=== PATIENT | male | born 1950 | race Caucasian/White ===

== ENCOUNTER 2016-10-15 09:37 | Inpatient (IN) | payer MEDICARE, BC ==
[~2016-10-15 09:37] MED LIST: Aspirin 81 MG Tab.Chew PO ONE; Nitroglycerin 0.4 MG Tab.SL SL PRN; Sodium Chloride 0.9% 10 ML Syringe FLUSH PRN
[2016-10-15] MEDS ORDERED: Ondansetron 4 MG/2 ML SDV IVPUSH ONE ×2 (09:53→10:50)
[2016-10-15 10:05] LABS: CHLORIDE,CL 100 mEq/L (98-106); SODIUM,NA 135 mEq/L (136-145)
[2016-10-15] MEDS: fentaNYL 100 MCG/2 ML SDV IVPUSH PRN ×3 (10:05→20:02)
[2016-10-15] MEDS ORDERED: Iopamidol 755 Mg/ML 100 ML Bottle IVPUSH ONE (11:20)
[2016-10-15] MEDS ORDERED: Promethazine 25 MG/ML SDV IM ONE (12:56)
[2016-10-15] MEDS ORDERED: Promethazine 25 MG/ML SDV IM PRN (14:21)
[2016-10-15] MEDS ORDERED: Magnesium Hydroxide 400 MG/5 ML Susp 30 ML Cup PO PRN (14:21)
[2016-10-15] MEDS ORDERED: Temazepam 15 MG Cap PO PRN (14:21)
[2016-10-15] MEDS ORDERED: Sodium Chloride 0.9% 10 ML Syringe FLUSH PRN (14:21)
--- NOTE | 2016-10-15 14:23 | EDM.PDOC ---
ED HPI GENERAL MEDICAL PROBLEM - General Chief Complaint: General Stated Complaint: CP, abdominal pain Time Seen by Provider: 10/15/16 09:37 Source of Information: Reports: Patient, Family History Limitations: Reports: No limitations - History of Present Illness INITIAL COMMENTS - FREE TEXT/NARRATIVE: Patient presents with EMS for abdominal and chest discomfort. States on Thursday he had pain that was lower chest and upper abdomen, mostly on the right side. That pain has eased but now continues to have pain in the lower abdominal quadrants. He presented to the clinic in [place] this am and was diaphoretic, in pain, bloated and they couldn't detect bowel sounds. He states he did have a BM on Thursday but not much movement since. Has not been eating well. Had one other episode of pain like this several months ago that only lasted about 3 hours. He says this pain has now persisted for 3 days. Patient is nauseated, has had the dry heaves. No vomiting. He denies fever. Does have a cardiac history but has had routine follow ups done yearly that have been good. CABG of 6 vessels was done in 2002. Denies any shortness of breath over the last 3 days. Onset: gradual Duration: Day(s):, Constant Location: Reports: chest, abdomen Quality: Reports: Ache, Dull, Pressure Severity: moderate Improves with: Reports: None Associated Symptoms: Reports: chest pain, diaphoresis, loss of appetite, nausea/ vomiting. Denies: cough, fever/chills, headaches, shortness of breath, weakness Abdominal Pain Score (Numeric/FACES): 1 - Related Data Allergies Allergy/AdvReac Type Severity Reaction Status Date / Time cephalexin Allergy Diarrhea Verified 10/15/16 09:44 chlorthalidone Allergy Other Verified 10/15/16 09:44 acetaminophen [From Tylenol] AdvReac Cannot Verified 10/15/16 09:44 Remember Home Meds: Home Meds Aspirin [Low Dose Aspirin EC] 81 mg PO DAILY 12/12/14 [History] Isosorbide Mononitrate [Isosorbide Mononitrate ER] 30 mg PO DAILY 12/12/14 [ History] Losartan [Cozaar] 100 mg PO DAILY 12/12/14 [History] Metoprolol Succinate [Toprol XL] 200 mg PO DAILY 12/12/14 [History] Simvastatin [Simvastatin] 80 mg PO DAILY 12/12/14 [History] metroNIDAZOLE [Metronidazole] 1 applic TOP DAILY 12/18/15 [History] Cholecalciferol (Vitamin D3) [Vitamin D3] 1,000 units PO DAILY 12/21/15 [History ] Magnesium 250 mg PO DAILY 12/21/15 [History] Centrum Cardio 2,000 unit PO DAILY 10/15/16 [History] Glucosamine/D3/Boswellia Meryl [Osteo Bi-Flex Tablet] 1 tab PO DAILY PRN [History] Testosterone Cypionate [Depo-Testosterone] 200 mg IM Q30D 10/15/16 [History] Past Medical History HEENT History: Reports: Allergic rhinitis, Sinusitis Cardiovascular History: Reports: Bypass, CAD, Heart Failure, High cholesterol, Hypertension, [place], Other (see below) Other Cardiovascular History: left carotid bruit Respiratory History: Reports: Other (see below) Other Respiratory History: SOB with exertion Gastrointestinal History: Reports: Other (see below) Other Gastrointestinal History: umbilical hernia Genitourinary History: Reports: BPH, Other (see below) Other Genitourinary History: nocturia Musculoskeletal History: Reports: Arthritis Endocrine/Metabolic History: Reports: Vitamin D deficiency Oncologic (Cancer) History: Reports: Other (see below) Other Oncologic History: skin - Past Surgical History Cardiovascular Surgical History: Reports: Coronary artery bypass GI Surgical History: Reports: Appendectomy, Hernia, inguinal Male Surgical History: Reports: Vasectomy Social & Family History - Tobacco Use Smoking Status *Q: Never Smoker - Recreational Drug Use Recreational Drug Use: No ED ROS GENERAL - Review of Systems Review Of Systems: See Below Constitutional: Reports: malaise, fatigue, decreased appetite. Denies: fever, chills HEENT: Denies: Ear discharge, Ear pain, Sinus problem, Throat pain, Vertigo, Vision change Respiratory: Denies: shortness of breath, cough Cardiovascular: Reports: Chest pain. Denies: Edema, Lightheadedness Endocrine: Reports: fatigue GI/Abdominal: Reports: Abdominal pain, Distension, Nausea. Denies: Vomiting : Reports: no symptoms Musculoskeletal: Reports: no symptoms Skin: Reports: no symptoms Neurological: Reports: no symptoms ED EXAM, GENERAL - Physical Exam Exam: See Below Exam Limited By: No limitations General Appearance: alert, WD/WN, no apparent distress Ears: normal external exam, normal canal, normal TMs Nose: normal inspection, no blood Throat/Mouth: Normal inspection, Normal oropharynx Head: normocephalic Neck: normal inspection, supple, non-tender Respiratory/Chest: no respiratory distress, normal breath sounds, rhonchi (RLL) Cardiovascular: regular rate, rhythm GI/Abdominal: distended, tender, abnormal bowel sounds: Extremities: normal inspection, normal capillary refill Neurological: alert, oriented Skin Exam: Warm, Dry Course - Vital Signs Last Recorded V/S: Last Vital Signs Temp 100.3 F 10/15/16 16:00 Pulse 92 10/15/16 16:00 Resp 24 H 10/15/16 16:00 BP 148/78 H 10/15/16 16:00 Pulse Ox 94 L 10/15/16 16:00 - Orders/Labs/Meds Orders: Active Orders 24 hr Category Date Time Status Patient Status [ADT] Routine ADT 10/15/16 14:21 Active Cardiac Monitoring [RC] . DIRECTED Care 10/15/16 09:30 Inactive Oxygen Therapy [RC] .PRN Care 10/15/16 14:21 Active Peripheral IV Care [RC] 0800,1999 Care 10/15/16 14:21 Active Up ad Racquel [RC] .PRN Care 10/15/16 14:21 Active Vital Signs [RC] 0000,0400,0800,1200,1600,1999 Care 10/15/16 14:21 Active Regular Diet [DIET] Diet 10/15/16 Dinner Active Abdomen 2V AP Flat Upright [CR] Stat Exams 10/15/16 09:43 Taken Abdomen Ltd [US] Routine Exams 10/16/16 07:00 Ordered Abdomen Pelvis w Cont [CT] Stat Exams 10/15/16 10:42 Taken Ang Chest [CT] Stat Exams 10/15/16 10:42 Taken Chest 2V [CR] Stat Exams 10/15/16 09:31 Taken C-REACTIVE PROTEIN [CHEM] AM Lab 10/16/16 05:11 Ordered CBC WITH AUTO DIFF [HEME] AM Lab 10/16/16 05:11 Ordered COMPREHENSIVE METABOLIC PN,CMP [CHEM] AM Lab 10/16/16 05:11 Ordered Acetaminophen [Tylenol] Med 10/15/16 14:21 Active 650 mg PO Q4H PRN Acetaminophen/HYDROcodone [Chaseley 325-5 MG] Med 10/15/16 14:21 Active 2 tab PO Q4H PRN Aspirin [Halfprin] Med 10/16/16 08:00 Active 81 mg PO DAILY Enoxaparin [Lovenox] Med 10/15/16 20:00 Active 40 mg SUBCUT Q24H Isosorbide Mononitrate [Imdur] Med 10/16/16 08:00 Active 30 mg PO DAILY Lactated Ringers [Ringers, Lactated] 1,000 ml Med 10/15/16 14:21 Active IV ASDIRECTED Levofloxacin/Dextrose 5%-Water [Levaquin in D5W 500 MG/ Med 10/16/16 08:00 Active 100 ML] 500 mg Premix Bag 1 bag IV Q24H Losartan [Cozaar] Med 10/16/16 08:00 Active 100 mg PO DAILY Magnesium Hydroxide [Milk of Magnesia] Med 10/15/16 14:21 Active 30 ml PO Q12H PRN Nitroglycerin [Nitrostat] Med 10/15/16 09:30 Active 0.4 mg SL Q5M PRN Ondansetron [Zofran] Med 10/15/16 10:51 Active 4 mg IVPUSH Q6H PRN Pantoprazole [Protonix IV] Med 10/16/16 08:00 Active 40 mg IVPUSH Q24H Promethazine [Phenergan] Med 10/15/16 14:21 Active 25 mg IM Q6H PRN Sodium Chloride 0.9% [Saline Flush] Med 10/15/16 14:21 Active 10 ml FLUSH ASDIRECTED PRN Temazepam [Restoril] Med 10/15/16 14:21 Active 15 mg PO BEDTIME PRN fentaNYL [Sublimaze] Med 10/15/16 09:44 Active 25 mcg IVPUSH Q6H PRN metroNIDAZOLE [Metronidazole] Med 10/16/16 08:00 Active 1 applic TOP DAILY Peripheral IV Insertion Adult [OM.PC] Routine Oth 10/15/16 14:21 Ordered Resuscitation Status Routine Resus Stat 10/15/16 14:06 Ordered Medication Orders Acetaminophen (Tylenol) 650 mg PO Q4H PRN PRN Reason: Pain (Mild 1-3)/fever Last Admin: 10/15/16 14:59 Dose: 650 mg Acetaminophen/Hydrocodone Bitart (Chaseley 325-5 Mg) 2 tab PO Q4H PRN PRN Reason: Pain (moderate 4-6) Aspirin (Halfprin) 81 mg PO DAILY [facility] Cholecalciferol (Vitamin D3) 1,000 units PO DAILY [facility] Enoxaparin Sodium (Lovenox) 40 mg SUBCUT Q24H [facility] Fentanyl (Sublimaze) 25 mcg IVPUSH Q6H PRN PRN Reason: Pain Last Admin: 10/15/16 15:56 Dose: 25 mcg Admin: 10/15/16 10:05 Dose: 25 mcg Lactated Ringer's (Ringers, Lactated) 1,000 mls @ 75 mls/hr IV ASDIRECTED [facility] Levofloxacin/Dextrose 500 mg/ (Premix) 100 mls @ 100 mls/hr IV Q24H [facility] Isosorbide Mononitrate (Imdur) 30 mg PO DAILY [facility] Losartan Potassium (Cozaar) 100 mg PO DAILY [facility] Magnesium Hydroxide (Milk Of Magnesia) 30 ml PO Q12H PRN PRN Reason: Constipation Magnesium Oxide (Magnesium Oxide) 250 mg PO DAILY [facility] Metoprolol Succinate (Toprol Xl) 200 mg PO DAILY [facility] Nitroglycerin (Nitrostat) 0.4 mg SL Q5M PRN PRN Reason: Chest Pain Stop: 10/16/16 09:31 Ptome [Metronidazole (] 1 Applic)) 1 applic TOP DAILY [facility] Ondansetron HCl (Zofran) 4 mg IVPUSH Q6H PRN PRN Reason: Nausea Last Admin: 10/15/16 14:59 Dose: 4 mg Pantoprazole Sodium (Protonix Iv) 40 mg IVPUSH Q24H [facility] Promethazine HCl (Phenergan) 25 mg IM Q6H PRN PRN Reason: Nausea/Vomiting Simvastatin (Zocor) 80 mg PO BEDTIME [facility] Sodium Chloride (Saline Flush) 10 ml FLUSH ASDIRECTED PRN PRN Reason: Keep Vein Open Temazepam (Restoril) 15 mg PO BEDTIME PRN PRN Reason: Sleep Labs: Laboratory Tests 10/15/16 10/15/16 10/15/16 Range/Units 09:30 09:30 09:30 WBC 17.7 H (5.0-10.0) 10^3/uL RBC 4.87 (4.50-6.00) 10^6/uL Hgb 15.2 (14.0-18.0) g/dL Hct 45.7 (40.0-54.0) % MCV 93.8 (82.0-94.0) fL MCH 31.2 (27.0-32.0) pg MCHC 33.3 (33.0-38.0) g/dL RDW Coeff of Carine 13.2 (11.0-15.0) % Plt Count 360 (150-400) 10^3/uL Neut % (Auto) 79.3 (35-85) % Lymph % (Auto) 6.7 L (10-55) % [place] % (Auto) 13.8 (0-16) % Eos % (Auto) 0.1 (0-5) % Baso % (Auto) 0.1 (0-3) % Neut # 14.00 H (1.80-7.00) 10^3/uL Lymph # 1.19 (1.00-4.80) 10^3/uL [place] # 2.44 H (0.00-0.80) 10^3/uL Eos # 0.01 (0.00-0.45) 10^3/uL Baso # 0.01 10^3/uL PT 11.4 (9.7-12.3) SEC INR 1.07 (0.92-1.18) APTT 31.5 H (24.5-30.9) SEC D-Dimer, Quantitative 1.22 H (0.00-0.50) Sodium 135 L (136-145) mEq/L Potassium 4.1 (3.5-5.0) mEq/L Chloride 100 (98-106) mEq/L Carbon Dioxide 27 (21-32) mmol/L BUN 14 (7-18) mg/dL Creatinine 0.9 (0.7-1.3) mg/dL Est Cr Clr Drug Dosing 88.62 mL/min Estimated GFR (MDRD) > 60 (>=60) mL/min Glucose 124 H D (75-99) mg/dL Calcium 9.1 (8.4-10.1) mg/dL Total Bilirubin 2.1 H (0.0-1.0) mg/dL AST 30 (15-37) U/L ALT 34 (12-78) U/L Alkaline Phosphatase 62 (46-116) U/L Lactate Dehydrogenase 196 H (100-190) U/L Creatine Kinase 684 H (35-232) U/L Troponin I < 0.017 (0.00-0.06) ng/mL C-Reactive Protein 14.7 H (0.2-0.8) mg/dL Total Protein 7.4 (6.4-8.2) g/dL Albumin 3.9 (3.4-5.0) g/dL Amylase 20 L (25-115) U/L Meds: Medications Generic Name Dose Route Start Last Admin Trade Name Freq PRN Reason Stop Dose Admin Acetaminophen 650 mg 10/15/16 14:21 10/15/16 14:59 Tylenol PO 650 mg Q4H PRN Administration Pain (Mild 1-3)/fever Acetaminophen/Hydrocodone Bitart 2 tab 10/15/16 14:21 Chaseley 325-5 Mg PO Q4H PRN Pain (moderate 4-6) Aspirin 81 mg 10/16/16 08:00 Halfprin PO DAILY [facility] Cholecalciferol 1,000 units 10/16/16 08:00 Vitamin D3 PO DAILY [facility] Enoxaparin Sodium 40 mg 10/15/16 20:00 Lovenox SUBCUT Q24H [facility] Fentanyl 25 mcg 10/15/16 09:44 10/15/16 15:56 Sublimaze IVPUSH 25 mcg Q6H PRN Administration Pain Lactated Ringer's 1,000 mls @ 75 mls/hr 10/15/16 14:21 Ringers, Lactated IV ASDIRECTED [facility] Levofloxacin/Dextrose 500 mg/ 100 mls @ 100 mls/hr 10/16/16 08:00 Premix IV Q24H [facility] Isosorbide Mononitrate 30 mg 10/16/16 08:00 Imdur PO DAILY [facility] Losartan Potassium 100 mg 10/16/16 08:00 Cozaar PO DAILY [facility] Magnesium Hydroxide 30 ml 10/15/16 14:21 Milk Of Magnesia PO Q12H PRN Constipation Magnesium Oxide 250 mg 10/16/16 08:00 Magnesium Oxide PO DAILY [facility] Metoprolol Succinate 200 mg 10/16/16 08:00 Toprol Xl PO DAILY [facility] Nitroglycerin 0.4 mg 10/15/16 09:30 Nitrostat SL 10/16/16 09:31 Q5M PRN Chest Pain Ptome [Metronidazole 1 applic 10/16/16 08:00 ] 1 Applic) TOP DAILY [facility] Ondansetron HCl 4 mg 10/15/16 10:51 10/15/16 14:59 Zofran IVPUSH 4 mg Q6H PRN Administration Nausea Pantoprazole Sodium 40 mg 10/16/16 08:00 Protonix Iv IVPUSH Q24H [facility] Promethazine HCl 25 mg 10/15/16 14:21 Phenergan IM Q6H PRN Nausea/Vomiting Simvastatin 80 mg 10/15/16 20:00 Zocor PO BEDTIME [facility] Sodium Chloride 10 ml 10/15/16 14:21 Saline Flush FLUSH ASDIRECTED PRN Keep Vein Open Temazepam 15 mg 10/15/16 14:21 Restoril PO BEDTIME PRN Sleep Discontinued Medications Generic Name Dose Route Start Last Admin Trade Name Freq PRN Reason Stop Dose Admin Aspirin 324 mg 10/15/16 09:30 10/15/16 09:59 Aspirin PO 10/15/16 09:31 324 mg ONETIME ONE Administration Levofloxacin/Dextrose 500 mg/ 100 mls @ 100 mls/hr 10/15/16 14:30 10/15/16 14 :58 Premix IV 10/15/16 15:29 100 mls/hr ONETIME ONE Administration Iopamidol 100 ml 10/15/16 11:20 10/15/16 12:48 [id number] (76%) IVPUSH 10/15/16 11:21 100 ml ONETIME ONE Administration Non-Formulary Medication 1,000 units 10/16/16 08:00 Cholecalciferol (Vitamin D3) [Vitamin D3] PO DAILY [facility] Non-Formulary Medication 250 mg 10/16/16 08:00 Magnesium [Magnesium] PO DAILY [facility] Non-Formulary Medication 200 mg 10/16/16 08:00 Metoprolol Succinate [Toprol Xl] PO DAILY [facility] Non-Formulary Medication 80 mg 10/16/16 08:00 Simvastatin [Simvastatin] PO DAILY [facility] Ondansetron HCl 4 mg 10/15/16 09:53 10/15/16 10:00 Zofran IVPUSH 10/15/16 09:54 4 mg ONETIME ONE Administration Ondansetron HCl 4 mg 10/15/16 10:50 10/15/16 10:54 Zofran IVPUSH 10/15/16 10:51 4 mg ONETIME ONE Administration Pantoprazole Sodium 40 mg 10/15/16 14:30 10/15/16 14:59 Protonix Iv IV 10/15/16 14:31 40 mg ONETIME ONE Administration Promethazine HCl 25 mg 10/15/16 12:56 10/15/16 13:05 Phenergan IM 10/15/16 12:57 25 mg ONETIME ONE Administration Sodium Chloride 10 ml 10/15/16 09:30 Saline Flush FLUSH ASDIRECTED PRN Keep Vein Open - Re-Assessments/Exams Free Text/Narrative Re-Assessment/Exam: 10/15/16 1030 Labs and xray reviewed with patient and . Does have elevation of WBC and CRP as well as D-Dimer. Will proceed with CT scan of chest to rule out PE, CT scan of abdomen and pelvis to look for possible source of infection. Departure - Departure Time of Disposition: 14:05 Disposition: Admitted As Inpatient 66 Condition: fair Clinical Impression: Cholecystitis with cholelithiasis Qualifiers: Cholecystitis acuity: acute - Problem List & Annotations (1) RLL pneumonia SNOMED Code(s): 025356557 Code(s): J18.1 - LOBAR PNEUMONIA, UNSPECIFIED ORGANISM Status: Acute Priority: High Current Visit: Yes Qualifiers: Pneumonia type: due to unspecified organism Qualified Code(s): J18.1 - Lobar pneumonia, unspecified organism (2) Cholecystitis with cholelithiasis SNOMED Code(s): 781694761, 136563812 Code(s): K80.10 - CALCULUS OF GALLBLADDER W CHRONIC CHOLECYST W/O OBSTRUCTION Status: Acute Priority: High Current Visit: Yes Qualifiers: Cholecystitis acuity: acute - Problem List Review Problem List Initiated/Reviewed/Updated: Yes - My Orders Last 24 Hours: My Active Orders 10/15/16 09:30 Cardiac Monitoring [RC] . DIRECTED Nitroglycerin [Nitrostat] 0.4 mg SL Q5M PRN 10/15/16 09:31 Chest 2V [CR] Stat 10/15/16 09:43 Abdomen 2V AP Flat Upright [CR] Stat 10/15/16 09:44 fentaNYL [Sublimaze] 25 mcg IVPUSH Q6H PRN 10/15/16 10:42 Abdomen Pelvis w Cont [CT] Stat Ang Chest [CT] Stat 10/15/16 10:51 Ondansetron [Zofran] 4 mg IVPUSH Q6H PRN 10/15/16 14:06 Resuscitation Status Routine 10/15/16 14:21 Patient Status [ADT] Routine Oxygen Therapy [RC] .PRN Peripheral IV Care [RC] 0800,2000 Up ad Racquel [RC] .PRN Vital Signs [RC] 0000,0400,0800,1200,1600,2000 Acetaminophen [Tylenol] 650 mg PO Q4H PRN Acetaminophen/HYDROcodone [Chaseley 325-5 MG] 2 tab PO Q4H PRN Lactated Ringers [Ringers, Lactated] 1,000 ml IV ASDIRECTED Magnesium Hydroxide [Milk of Magnesia] 30 ml PO Q12H PRN Promethazine [Phenergan] 25 mg IM Q6H PRN Sodium Chloride 0.9% [Saline Flush] 10 ml FLUSH ASDIRECTED PRN Temazepam [Restoril] 15 mg PO BEDTIME PRN Peripheral IV Insertion Adult [OM.PC] Routine 10/15/16 20:00 Enoxaparin [Lovenox] 40 mg SUBCUT Q24H 10/15/16 Dinner Regular Diet [DIET] 10/16/16 05:11 C-REACTIVE PROTEIN [CHEM] AM CBC WITH AUTO DIFF [HEME] AM COMPREHENSIVE METABOLIC PN,CMP [CHEM] AM 10/16/16 07:00 Abdomen Ltd [US] Routine 10/16/16 08:00 Aspirin [Halfprin] 81 mg PO DAILY Isosorbide Mononitrate [Imdur] 30 mg PO DAILY Levofloxacin/Dextrose 5%-Water [Levaquin in D5W 500 MG/100 ML] 500 mg Premix Bag 1 bag IV Q24H Losartan [Cozaar] 100 mg PO DAILY Pantoprazole [Protonix IV] 40 mg IVPUSH Q24H metroNIDAZOLE [Metronidazole] 1 applic TOP DAILY - Assessment/Plan Admission H&P: Please use this note as an admission H&P Last 24 Hours: My Active Orders 10/15/16 09:30 Cardiac Monitoring [RC] . DIRECTED Nitroglycerin [Nitrostat] 0.4 mg SL Q5M PRN 10/15/16 09:31 Chest 2V [CR] Stat 10/15/16 09:43 Abdomen 2V AP Flat Upright [CR] Stat 10/15/16 09:44 fentaNYL [Sublimaze] 25 mcg IVPUSH Q6H PRN 10/15/16 10:42 Abdomen Pelvis w Cont [CT] Stat Ang Chest [CT] Stat 10/15/16 10:51 Ondansetron [Zofran] 4 mg IVPUSH Q6H PRN 10/15/16 14:06 Resuscitation Status Routine 10/15/16 14:21 Patient Status [ADT] Routine Oxygen Therapy [RC] .PRN Peripheral IV Care [RC] 0800,1999 Up ad Racquel [RC] .PRN Vital Signs [RC] 0000,0400,0800,1200,1600,2000 Acetaminophen [Tylenol] 650 mg PO Q4H PRN Acetaminophen/HYDROcodone [Chaseley 325-5 MG] 2 tab PO Q4H PRN Lactated Ringers [Ringers, Lactated] 1,000 ml IV ASDIRECTED Magnesium Hydroxide [Milk of Magnesia] 30 ml PO Q12H PRN Promethazine [Phenergan] 25 mg IM Q6H PRN Sodium Chloride 0.9% [Saline Flush] 10 ml FLUSH ASDIRECTED PRN Temazepam [Restoril] 15 mg PO BEDTIME PRN Peripheral IV Insertion Adult [OM.PC] Routine 10/15/16 20:00 Enoxaparin [Lovenox] 40 mg SUBCUT Q24H 10/15/16 Dinner Regular Diet [DIET] 10/16/16 05:11 C-REACTIVE PROTEIN [CHEM] AM CBC WITH AUTO DIFF [HEME] AM COMPREHENSIVE METABOLIC PN,CMP [CHEM] AM 10/16/16 07:00 Abdomen Ltd [US] Routine 10/16/16 08:00 Aspirin [Halfprin] 81 mg PO DAILY Isos[facility] Mononitrate [Imdur] 30 mg PO DAILY Levofloxacin/Dextrose 5%-Water [Levaquin in D5W 500 MG/100 ML] 500 mg Premix Bag 1 bag IV Q24H Losartan [Cozaar] 100 mg PO DAILY Pantoprazole [Protonix IV] 40 mg IVPUSH Q24H metroNIDAZOLE [Metronidazole] 1 applic TOP DAILY Assessment:: Cholecystitis with cholelithiasis Questionable RLL- CT scan shows subsegmental changes, question infiltrate versus atelectasis. Plan: Admit acute to Dr. Call. Will start IV Levaquin today. Obtain gallbladder ultrasound in am for better definitive test. Repeat labs in am. Dr. Call informed of admission.
[2016-10-15] MEDS ORDERED: Levofloxacin/Dextrose 5%-Water 500 MG in Premix Bag 1 BAG IV ONE (14:30)
[2016-10-15] MEDS ORDERED: Pantoprazole 40 MG Vial IV ONE (14:30)
[2016-10-15] MEDS: Acetaminophen 325 MG Tab PO PRN (14:59)
[2016-10-15] MEDS: Lactated Ringers 1,000 ML IV SCH (14:59)
[2016-10-15] MEDS: Ondansetron 4 MG/2 ML SDV IVPUSH PRN ×2 (14:59→21:42)
[2016-10-15] MEDS: Acetaminophen/HYDROcodone 325-5 MG Tab PO PRN ×2 (17:28→21:41)
[2016-10-15] MEDS ORDERED: Isosorbide Mononitrate 30 MG Tab.ER PO SCH (19:30)
[2016-10-15] MEDS ORDERED: Losartan 100 MG Tab PO SCH (19:31)
[2016-10-15] MEDS ORDERED: Metoprolol Succinate 100 MG Tab.ER PO SCH (19:32)
[2016-10-15] MEDS: Aspirin 81 MG Tab.EC PO SCH (19:59)
[2016-10-15] MEDS ORDERED: Enoxaparin 40 MG/0.4 ML Syringe SUBCUT SCH (20:00)
[2016-10-15] MEDS ORDERED: Simvastatin 40 MG Tab PO SCH (20:00)
[2016-10-16] MEDS: Acetaminophen/HYDROcodone 325-5 MG Tab PO PRN (02:44)
[2016-10-16] MEDS: Lactated Ringers 1,000 ML IV SCH (04:59)
[2016-10-16] MEDS ORDERED: METOPROLOL SUCCINATE 200 MG PO SCH (08:00)
[2016-10-16] MEDS ORDERED: Isosorbide Mononitrate 30 MG Tab.ER PO SCH ×2 (08:00→20:00)
[2016-10-16] MEDS ORDERED: Non-Formulary Medication 1 Each (Magnesium [Magnesium] 250 MG) PO SCH (08:00)
[2016-10-16] MEDS ORDERED: Non-Formulary Medication 1 Each (Cholecalciferol (Vitamin D3) [Vitamin D3] 1,000 UNITS) PO SCH (08:00)
[2016-10-16] MEDS ORDERED: Non-Formulary Medication 1 Each (Simvastatin [Simvastatin] 80 MG) PO SCH (08:00)
[2016-10-16] MEDS ORDERED: Levofloxacin/Dextrose 5%-Water 500 MG in Premix Bag 1 BAG IV SCH (08:00)
[2016-10-16] MEDS ORDERED: Aspirin 81 MG Tab.EC PO SCH (08:00)
[2016-10-16] MEDS ORDERED: Metoprolol Succinate 100 MG Tab.ER PO SCH ×2 (08:00→20:00)
[2016-10-16] MEDS ORDERED: Pantoprazole 40 MG Vial IVPUSH SCH (08:00)
[2016-10-16] MEDS ORDERED: Cholecalciferol (Vitamin D3) 1,000 Unit Tab PO SCH ×2 (08:00→20:00)
[2016-10-16] MEDS ORDERED: METRONIDAZOLE TOP SCH ×2 (08:00→20:00)
[2016-10-16] MEDS ORDERED: Losartan 100 MG Tab PO SCH ×2 (08:00→20:00)
[2016-10-16 08:14] VITALS: BP 147/85
[2016-10-16 08:33] LABS: CHLORIDE,CL 100 mEq/L (98-106); SODIUM,NA 133 mEq/L (136-145)
[2016-10-16] MEDS: Acetaminophen 325 MG Tab PO PRN (08:47)
[2016-10-16] MEDS: Aspirin 81 MG Tab.EC PO SCH (09:03)
[2016-10-16] MEDS: fentaNYL 100 MCG/2 ML SDV IVPUSH PRN (10:00)
[2016-10-16] MEDS: Ondansetron 4 MG/2 ML SDV IVPUSH PRN (10:01)
--- NOTE | 2016-10-20 07:21 | DISCH ---
HISTORY: Dinh presented to the emergency room on 10/15 for complaints of chest pain and upper abdominal pain. He had been experiencing this chest pain for approximately 3 days. Over the course of those days, the pain did settle down into his lower abdomen, had been feeling more distended, having a lot more discomfort, having continuous nausea. He did note that he had a bowel movement last on Thursday, which was normal, has not had one since that time and wondered if that somewhat contributed to it. He has never experienced pain this severe before in his abdomen. He does relate back about 3-4 months ago, he had an episode that lasted about 3 hours, but ultimately that resolved on its own. Denies any real experience with heartburn over the past year or two. Initial presentation to the ER, the patient was diaphoretic. His blood pressure was elevated. His initial lab work at that time showed a white blood count of 17.7, a CRP of 14.7, D-dimer was elevated at 1.22. Ultimately, a CT scan was done to rule out a PE, that did note a possible right subsegmental infiltrate versus atelectasis. Abdominal CT did show thickening of the gallbladder with a couple of stones. We did admit him for hydration to control pain and nausea as well as for further workup. PAST MEDICAL HISTORY: As noted. He does have a history of coronary artery disease, had heart surgery approximately 13 years, initially felt that his presentation was related to his heart but now that the abdominal pain has settled more into his lower quadrants, there is a question of the fact that he could have diverticulitis. He had a colonoscopy in the past that did note he had some issues with diverticulosis. CURRENT MEDICATIONS: Reviewed. Please see med record. HOSPITAL COURSE: The patient continued to have issues with nausea over the last 24 hours, was controlled with both Zofran and Phenergan, had been taking a fairly adequate amount of pain medications to control his upper quadrant pain. We did proceed with a gallbladder ultrasound this a.m., which did show sludge and it looked to be possibly infected. He had been given IV Levaquin over the hospital stay. Dr. Call did contact Dr. Friedman at [facility], who agreed to accept Dinh for surgical consult, possible cholecystectomy. Vital signs throughout his stay did show a low-grade temp from 99.3 to 100.1. Blood pressure did remain stable after admission from 129/72 to 147/85. Oxygen saturation 92% on room air. ASSESSMENT: Cholecystitis with cholelithiasis. PLAN: The patient was transferred to [facility] per [facility] services for surgical consult, and possible cholecystectomy. Please see copy of H and P for further dictation. SOPHIE/PAUL /[id number]
== END 2016-10-16 10:41 | DRG 444 ==
LOC: CC.ED 09:37 → CC.MS 14:07 → UNDOADMIN 14:07 → CC.MS 14:21
PROVIDERS: ADMIT Physician Assistant Medical; ATTEND General Practice
DX: K80.10 Calculus of gallbladder with chronic cholecystitis without obstruction (principal); R07.9 Chest pain, unspecified; R10.10 Upper abdominal pain, unspecified; R11.0 Nausea; J18.1 Lobar pneumonia, unspecified organism; E78.00 Pure hypercholesterolemia, unspecified; N40.0 Benign prostatic hyperplasia without lower urinary tract symptoms; I25.10 Atherosclerotic heart disease of native coronary artery without angina pectoris; Z95.1 Presence of aortocoronary bypass graft; I25.2 Old myocardial infarction; Z85.828 Personal history of other malignant neoplasm of skin; Z88.6 Allergy status to analgesic agent; Z88.1 Allergy status to other antibiotic agents; Z79.82 Long term (current) use of aspirin; R79.1 Abnormal coagulation profile
CPT/HCPCS: 36415; 71020; 71275; 74020; 74177; 80053; 82150; 82550; 83615; 84484; 85025; 85379; 85610; 85730; 86140; 93005; 96372; 96374; 96375; 96376; 99285; A9270; J2405 ×2; J2550; J3010; Q9967 ×2; 76705; 93010; C9113; J1650; J1956; J7120

== ENCOUNTER → 2021-01-25 | Day surgery (SDC) | payer MEDICARE ==
[~2021-01-25] MED LIST changes: -Aspirin 81 MG Tab.Chew PO ONE; +Ketamine 200 MG/20 ML MDV ONE; -Nitroglycerin 0.4 MG Tab.SL SL PRN; +Propofol 200 MG/20 ML SDV ONE; -Sodium Chloride 0.9% 10 ML Syringe FLUSH PRN; +fentaNYL 100 MCG/2 ML SDV ONE
[2021-01-25] MEDS: Lactated Ringers 1,000 ML IV SCH (06:50)
[2021-01-25 08:33] VITALS: BP 113/69; PULSE 55
--- NOTE | 2021-01-25 12:40 | OR ---
DATE OF OPERATION: 01/25/2021 PREOPERATIVE DIAGNOSIS: HISTORY OF POLYPS. POSTOPERATIVE DIAGNOSIS: HISTORY OF POLYPS. SURGEON: Bang Mayers MD PROCEDURE: FULL-LENGTH DIAGNOSTIC COLONOSCOPY. ANESTHESIA: MAC. COMPLICATIONS: None. SPECIMEN: None. FINDINGS: 1. Normal full-length colonoscopy. 2. Sigmoid diverticulosis, mild. RECOMMENDATIONS: Followup colonoscopy in 10 years. INDICATIONS: The patient has a prior history of polyps being removed. He is due for a 5-year followup scope. DESCRIPTION OF PROCEDURE: The patient was prepped and draped, placed in the left lateral decubitus position. A lubricated Olympus colonoscope was inserted and easily advanced to the cecum. Direct visualization of the ileocecal valve and appendiceal orifice was accomplished. Bowel prep unfortunately was marginal. Lot of stool throughout most of the colon. I tried to suction and irrigate where I could, but certainly smaller lesions could be missed. Upon withdrawal, throughout the entire colon, I could find no polyps, masses, ulceration, or bleeding sites. No vascular abnormalities or signs of colitis. The patient does have scattered diverticula throughout the sigmoid area, mild in severity. No other lesions seen. The rectal vault appeared benign. Retroflexion showed no perianal lesions. Air was suctioned. Scope removed without complication. INA/PAUL /[id number]
== END ==
LOC: CC.SDS 06:38
PROVIDERS: ATTEND Family Medicine
DX: Z12.11 Encounter for screening for malignant neoplasm of colon (principal); Z86.010 Personal history of colon polyps; K57.30 Diverticulosis of large intestine without perforation or abscess without bleeding; I11.0 Hypertensive heart disease with heart failure; I25.10 Atherosclerotic heart disease of native coronary artery without angina pectoris; E78.5 Hyperlipidemia, unspecified; E11.9 Type 2 diabetes mellitus without complications; E55.9 Vitamin D deficiency, unspecified; N40.1 Benign prostatic hyperplasia with lower urinary tract symptoms; R35.1 Nocturia; Z88.8 Allergy status to other drugs, medicaments and biological substances; Z79.84 Long term (current) use of oral hypoglycemic drugs; Z79.899 Other long term (current) drug therapy; Z79.82 Long term (current) use of aspirin; Z98.890 Other specified postprocedural states
CPT/HCPCS: 00811; 99100; G0105; J2704; J3010; J7120

== ENCOUNTER 2023-10-29 07:45 | Day surgery (SDC) | payer MEDICARE ==
[2023-10-29] MEDS: Lactated Ringers 1,000 ML IV SCH (08:05)
[2023-10-29] MEDS: Cyclopentolat/Tropic/Phenyleph 1 ML Ophth Drop SDV EYERT SCH (08:06)
[2023-10-29] MEDS ORDERED: Midazolam 1 MG/ML 2 ML SDV ONE (08:36)
[2023-10-29] MEDS: MOXIFLOXACIN PF in BSS 1 MG/ML VIAL ICORN ONE (08:54)
[2023-10-29] MEDS: Tetracaine HCl/PF 0.5% 4 ML Bottle EYERT ONE (08:54)
[2023-10-29] MEDS: Brimonidine 0.2% Ophth Soln 5 ML Bottle EYERT ONE (08:54)
[2023-10-29] MEDS: Povidone-Iodine 5% Sterile Ophth Soln 30 ML Bottle EYERT ONE (08:54)
[2023-10-29] MEDS: Lidocaine 1% 5 ML VIAL INJECT ONE (08:54)
[2023-10-29] MEDS: acetaZOLAMIDE 500 MG Cap.ER PO ONE (09:22)
[2023-10-29 09:56] VITALS: BP 123/66; PULSE 71
== END 2023-10-29 10:08 | disposition home or self-care (01) ==
LOC: CC.SDS 07:45
PROVIDERS: ATTEND Ophthalmology
DX: E11.36 Type 2 diabetes mellitus with diabetic cataract (principal); H21.81 Floppy iris syndrome; I10 Essential (primary) hypertension; I25.10 Atherosclerotic heart disease of native coronary artery without angina pectoris; N40.1 Benign prostatic hyperplasia with lower urinary tract symptoms; E78.5 Hyperlipidemia, unspecified; G47.33 Obstructive sleep apnea (adult) (pediatric); J98.4 Other disorders of lung; E66.01 Morbid (severe) obesity due to excess calories; Z68.38 Body mass index [BMI] 38.0-38.9, adult; Z79.82 Long term (current) use of aspirin; Z79.85 Long-term (current) use of injectable non-insulin antidiabetic drugs; Z79.84 Long term (current) use of oral hypoglycemic drugs; Z79.899 Other long term (current) drug therapy
CPT/HCPCS: A9270-GY; J2250; J3490; J7120

== ENCOUNTER 2023-11-26 08:27 | Day surgery (SDC) | payer MEDICARE ==
[2023-11-26] MEDS: Cyclopentolat/Tropic/Phenyleph 1 ML Ophth Drop SDV EYELF SCH (08:41)
[2023-11-26] MEDS: Lactated Ringers 1,000 ML IV SCH (08:43)
[2023-11-26] MEDS ORDERED: Midazolam 1 MG/ML 2 ML SDV ONE (09:05)
[2023-11-26] MEDS ORDERED: fentaNYL 50 MCG/ML SDV ONE (09:05)
[2023-11-26] MEDS: Phenyleprhine/Ketorolac 4 ML Vial OP ONE (09:18)
[2023-11-26] MEDS: Brimonidine 0.2% Ophth Soln 5 ML Bottle EYEBOTH ONE (09:18)
[2023-11-26] MEDS: Povidone-Iodine 5% Sterile Ophth Soln 30 ML Bottle EYELF ONE (09:18)
[2023-11-26] MEDS: Lidocaine 1% 5 ML VIAL INJECT ONE (09:18)
[2023-11-26] MEDS: Tetracaine HCl/PF 0.5% 4 ML Bottle EYELF ONE (09:18)
[2023-11-26] MEDS: MOXIFLOXACIN PF in BSS 1 MG/ML VIAL ICORN ONE (09:18)
[2023-11-26] MEDS: acetaZOLAMIDE 500 MG Cap.ER PO ONE (10:01)
[2023-11-26 12:36] VITALS: BP 101/46; PULSE 66
== END 2023-11-26 10:35 | disposition home or self-care (01) ==
LOC: CC.SDS 08:27
PROVIDERS: ATTEND Ophthalmology
DX: E11.36 Type 2 diabetes mellitus with diabetic cataract (principal); H57.03 Miosis; I10 Essential (primary) hypertension; E11.9 Type 2 diabetes mellitus without complications; I25.10 Atherosclerotic heart disease of native coronary artery without angina pectoris; E78.5 Hyperlipidemia, unspecified; G47.33 Obstructive sleep apnea (adult) (pediatric); E66.01 Morbid (severe) obesity due to excess calories; Z68.38 Body mass index [BMI] 38.0-38.9, adult; Z95.1 Presence of aortocoronary bypass graft; Z79.82 Long term (current) use of aspirin; Z79.84 Long term (current) use of oral hypoglycemic drugs; Z79.85 Long-term (current) use of injectable non-insulin antidiabetic drugs; Z79.899 Other long term (current) drug therapy
CPT/HCPCS: 00142; 99100; A9270-GY; J1097; J2250; J3010; J3490; J7120

== ENCOUNTER 2024-07-04 14:53 | Inpatient (IN) | payer MEDICARE ==
[2024-07-04] MEDS ORDERED: Sodium Chloride 0.9% 10 ML Syringe FLUSH PRN (15:20)
[2024-07-04] MEDS ORDERED: Acetaminophen 325 MG Tab PO PRN (15:20)
[2024-07-04] MEDS ORDERED: Ondansetron 4 MG/2 ML SDV IV PRN (15:20)
[2024-07-04] MEDS ORDERED: Ondansetron 4 MG Tab.DIS PO PRN (15:20)
[2024-07-04 15:54] LABS: LACTIC ACID 1.8 mmol/L (0.4-2.0)
[2024-07-04] MEDS: Acetaminophen/HYDROcodone 325-5 MG Tab PO PRN (16:21)
[2024-07-04] MEDS: cefTRIAXone 2 GM Vial IVPUSH SCH (16:23)
[2024-07-04] MEDS ORDERED: Albuterol 6.7 GM Inhaler INH PRN (16:26)
[2024-07-04] MEDS: amLODIPine 2.5 MG Tab PO SCH (19:40)
[2024-07-04] MEDS: Losartan 100 MG Tab PO SCH (19:41)
[2024-07-04] MEDS: Magnesium Oxide 400 MG Tab PO SCH (19:41)
[2024-07-04] MEDS: Aspirin 81 MG Tab.EC PO SCH (19:41)
[2024-07-04] MEDS: Metoprolol Succinate 100 MG Tab.ER PO SCH (19:41)
[2024-07-04] MEDS: Simvastatin 40 MG Tab PO SCH (19:41)
[2024-07-04] MEDS: Isosorbide Mononitrate 60 MG Tab.ER PO SCH (19:41)
[2024-07-04] MEDS: Enoxaparin 40 MG/0.4 ML Syringe SUBCUT SCH (19:42)
[2024-07-04] MEDS: Cyclobenzaprine 10 MG Tab PO PRN (19:54)
[2024-07-05] MEDS: Furosemide 40 MG Tab PO SCH (07:21)
[2024-07-05] MEDS: Hydrochlorothiazide 25 MG Tab PO SCH (07:21)
[2024-07-05 07:58] LABS: BASOPHILS ABSOLUTE AUTO 0.01 10^3/uL (0.00-0.50); BASOPHILS PERCENT AUTO 0.1 % (0-1); EOSINOPHILS ABSOLUTE AUTO 0.07 10^3/uL (0.00-1.50); EOSINOPHILS PERCENT AUTO 0.5 % (0-6); HEMATOCRIT 38.6 % (42.0-52.0); HEMOGLOBIN 12.8 g/dL (14.0-18.0); IMMATURE GRAN ABSOLUTE AUTO 0.12 10^3/uL (0.00-0.49); IMMATURE GRAN PERCENT AUTO 0.9 % (0.0-4.9); LYMPHOCYTES ABSOLUTE AUTO 1.55 10^3/uL (0.60-5.00); LYMPHOCYTES PERCENT AUTO 11.8 % (24-44); MEAN CORPUSCULAR HEMOGLOBIN 31.3 pg (27.0-32.0); MEAN CORPUSCULAR HGB CONC 33.2 g/dL (32.0-36.0); MEAN CORPUSCULAR VOLUME 94.4 fL (83.0-97.0); MONOCYTES ABSOLUTE AUTO 1.31 10^3/uL (0.00-1.50); NEUTROPHILS ABSOLUTE AUTO 10.05 x10^3/uL (1.80-8.00); NEUTROPHILS PERCENT AUTO 76.7 % (41-71); PLATELET COUNT,PLT 188 10^3/uL (150-400); RED BLOOD CELL COUNT 4.09 x10^6/uL (4.50-6.00); WHITE BLOOD CELL COUNT,WBC 13.1 10^3/uL (4.0-11.0)
[2024-07-05 08:05] LABS: BILIRUBIN TOTAL 1.4 mg/dL (0.0-1.0); C-REACTIVE PROTEIN 14.77 mg/dL (<=0.50); CALCIUM 9.2 mg/dL (8.4-10.1); CREATININE 1.2 mg/dL (0.7-1.3); EST CRCL DRUG DOSING (CG) 59.28 mL/min; POTASSIUM,K 3.3 mEq/L (3.5-5.0); PROTEIN TOTAL,TP 7.2 g/dL (6.4-8.2)
[2024-07-05] MEDS: VANCOmycin 2 GM in Sodium Chloride 0.9% 500 ML IV ONE (12:23)
[2024-07-05] MEDS: Potassium Chloride 20 MEQ Tab.ER PO ONE (13:10)
[2024-07-05] MEDS: Cyclobenzaprine 10 MG Tab PO SCH (13:12)
[2024-07-06] MEDS: VANCOmycin 1 GM/200 ML 1 GM in Premix Bag 1 BAG IV SCH (00:34)
[2024-07-06 08:13] LABS: ALBUMIN 2.8 g/dL (3.4-5.0); BILIRUBIN TOTAL 1.2 mg/dL (0.0-1.0); C-REACTIVE PROTEIN 10.53 mg/dL (<=0.50); CALCIUM 9.2 mg/dL (8.4-10.1); CREATININE 1.2 mg/dL (0.7-1.3); EST CRCL DRUG DOSING (CG) 59.28 mL/min; POTASSIUM,K 3.5 mEq/L (3.5-5.0)
[2024-07-06] MEDS: Potassium Chloride 20 MEQ Tab.ER PO SCH (08:13)
[2024-07-06 08:40] LABS: HEMATOCRIT 37.4 % (42.0-52.0); HEMOGLOBIN 12.4 g/dL (14.0-18.0); MEAN CORPUSCULAR HGB CONC 33.2 g/dL (32.0-36.0); MEAN CORPUSCULAR VOLUME 93.5 fL (83.0-97.0); PLATELET COUNT,PLT 183 10^3/uL (150-400); WHITE BLOOD CELL COUNT,WBC 7.9 10^3/uL (4.0-11.0)
[2024-07-06 08:41] LABS: BASOPHILS ABSOLUTE AUTO 0.01 10^3/uL (0.00-0.50); BASOPHILS PERCENT AUTO 0.1 % (0-1); EOSINOPHILS ABSOLUTE AUTO 0.12 10^3/uL (0.00-1.50); EOSINOPHILS PERCENT AUTO 1.5 % (0-6); IMMATURE GRAN ABSOLUTE AUTO 0.04 10^3/uL (0.00-0.49); IMMATURE GRAN PERCENT AUTO 0.5 % (0.0-4.9); LYMPHOCYTES ABSOLUTE AUTO 1.41 10^3/uL (0.60-5.00); LYMPHOCYTES PERCENT AUTO 17.8 % (24-44); MONOCYTES ABSOLUTE AUTO 1.22 10^3/uL (0.00-1.50); MONOCYTES PERCENT AUTO 15.4 % (0-10); NEUTROPHILS PERCENT AUTO 64.7 % (41-71)
[2024-07-06] MEDS: SEMAGLUTIDE 1 MG/0.75 ML SQ SCH (08:55)
[2024-07-06] MEDS: Cholecalciferol (Vitamin D3) 25 MCG Tab PO SCH (19:59)
[2024-07-07 07:34] LABS: BASOPHILS ABSOLUTE AUTO 0.02 10^3/uL (0.00-0.50); BASOPHILS PERCENT AUTO 0.3 % (0-1); EOSINOPHILS ABSOLUTE AUTO 0.15 10^3/uL (0.00-1.50); HEMATOCRIT 38.1 % (42.0-52.0); HEMOGLOBIN 12.7 g/dL (14.0-18.0); IMMATURE GRAN ABSOLUTE AUTO 0.06 10^3/uL (0.00-0.49); IMMATURE GRAN PERCENT AUTO 0.8 % (0.0-4.9); LYMPHOCYTES ABSOLUTE AUTO 1.69 10^3/uL (0.60-5.00); LYMPHOCYTES PERCENT AUTO 22.4 % (24-44); MEAN CORPUSCULAR HEMOGLOBIN 30.9 pg (27.0-32.0); MEAN CORPUSCULAR HGB CONC 33.3 g/dL (32.0-36.0); MEAN CORPUSCULAR VOLUME 92.7 fL (83.0-97.0); MONOCYTES ABSOLUTE AUTO 1.38 10^3/uL (0.00-1.50); MONOCYTES PERCENT AUTO 18.3 % (0-10); NEUTROPHILS ABSOLUTE AUTO 4.26 x10^3/uL (1.80-8.00); NEUTROPHILS PERCENT AUTO 56.2 % (41-71); PLATELET COUNT,PLT 176 10^3/uL (150-400); RED BLOOD CELL COUNT 4.11 x10^6/uL (4.50-6.00); WHITE BLOOD CELL COUNT,WBC 7.6 10^3/uL (4.0-11.0)
[2024-07-07 07:45] LABS: ALBUMIN 2.8 g/dL (3.4-5.0); BILIRUBIN TOTAL 1.4 mg/dL (0.0-1.0); C-REACTIVE PROTEIN 8.31 mg/dL (<=0.50); CALCIUM 9.5 mg/dL (8.4-10.1); CREATININE 1.1 mg/dL (0.7-1.3); EST CRCL DRUG DOSING (CG) 64.67 mL/min; POTASSIUM,K 3.6 mEq/L (3.5-5.0); PROTEIN TOTAL,TP 7.2 g/dL (6.4-8.2)
[2024-07-07] MEDS ORDERED: Polyethylene Glycol 3350 Powder 17 GM Packet PO PRN (09:48)
[2024-07-07] MEDS: Docusate Sodium 100 MG Cap PO SCH (09:53)
[2024-07-08 07:39] LABS: BASOPHILS ABSOLUTE AUTO 0.04 10^3/uL (0.00-0.50); BASOPHILS PERCENT AUTO 0.6 % (0-1); EOSINOPHILS ABSOLUTE AUTO 0.13 10^3/uL (0.00-1.50); EOSINOPHILS PERCENT AUTO 2.1 % (0-6); HEMATOCRIT 35.2 % (42.0-52.0); IMMATURE GRAN ABSOLUTE AUTO 0.08 10^3/uL (0.00-0.49); IMMATURE GRAN PERCENT AUTO 1.3 % (0.0-4.9); LYMPHOCYTES ABSOLUTE AUTO 1.72 10^3/uL (0.60-5.00); LYMPHOCYTES PERCENT AUTO 27.1 % (24-44); MEAN CORPUSCULAR HEMOGLOBIN 31.3 pg (27.0-32.0); MEAN CORPUSCULAR HGB CONC 34.1 g/dL (32.0-36.0); MEAN CORPUSCULAR VOLUME 91.9 fL (83.0-97.0); MONOCYTES ABSOLUTE AUTO 1.09 10^3/uL (0.00-1.50); MONOCYTES PERCENT AUTO 17.2 % (0-10); NEUTROPHILS ABSOLUTE AUTO 3.28 x10^3/uL (1.80-8.00); NEUTROPHILS PERCENT AUTO 51.7 % (41-71); PLATELET COUNT,PLT 171 10^3/uL (150-400); RED BLOOD CELL COUNT 3.83 x10^6/uL (4.50-6.00); WHITE BLOOD CELL COUNT,WBC 6.3 10^3/uL (4.0-11.0)
[2024-07-08 07:48] LABS: ALBUMIN 2.5 g/dL (3.4-5.0); BILIRUBIN TOTAL 1.3 mg/dL (0.0-1.0); C-REACTIVE PROTEIN 6.36 mg/dL (<=0.50); CALCIUM 9.2 mg/dL (8.4-10.1); CREATININE 1.1 mg/dL (0.7-1.3); EST CRCL DRUG DOSING (CG) 64.67 mL/min; POTASSIUM,K 3.4 mEq/L (3.5-5.0); PROTEIN TOTAL,TP 6.5 g/dL (6.4-8.2)
[2024-07-08 08:17] VITALS: BP 126/69; PULSE 76
== END 2024-07-08 16:15 | disposition home or self-care (01) | DRG 603 ==
LOC: UNDOADMIN 14:53 → CC.MS 14:53
PROVIDERS: ADMIT Nurse Practitioner Family; ATTEND Nurse Practitioner Family
DX: L03.116 Cellulitis of left lower limb (principal); R78.81 Bacteremia; I50.9 Heart failure, unspecified; E11.9 Type 2 diabetes mellitus without complications; I25.10 Atherosclerotic heart disease of native coronary artery without angina pectoris; I11.0 Hypertensive heart disease with heart failure; E78.00 Pure hypercholesterolemia, unspecified; M19.90 Unspecified osteoarthritis, unspecified site; N40.0 Benign prostatic hyperplasia without lower urinary tract symptoms; M54.2 Cervicalgia; Z88.8 Allergy status to other drugs, medicaments and biological substances; Z79.82 Long term (current) use of aspirin; Z79.899 Other long term (current) drug therapy; Z79.84 Long term (current) use of oral hypoglycemic drugs; Z79.51 Long term (current) use of inhaled steroids; Z79.52 Long term (current) use of systemic steroids; I25.2 Old myocardial infarction; Z95.1 Presence of aortocoronary bypass graft; Z98.890 Other specified postprocedural states; Z90.49 Acquired absence of other specified parts of digestive tract
CPT/HCPCS: 36415; 80053; 83605; 85025; 85379; 86140; 87040; 87077; 87186; 87428-QW; 93971-LT; 97010-GP; 97032-GP; 97140-GP; 97161-GP; 99223; 99232; 99233; 99238; A9270-GY; G0283-GP; J0696; J1650; J3372; J7040